=== PATIENT | female | born 1955 | race Caucasian/White ===

== ENCOUNTER 2017-05-03 10:47 | Inpatient (IN) | payer OTHER, SELFPAY ==
[2017-05-03] MEDS ORDERED: Morphine 4 MG/ML VIAL ONE (11:37)
[2017-05-03] MEDS ORDERED: Ondansetron HCl/PF 4 MG/2 ML Vial ONE (11:40)
[2017-05-03] MEDS ORDERED: Fentanyl 100 MCG/2 ML VIAL ONE ×2 (11:40→13:25)
[2017-05-03] MEDS ORDERED: Dextrose 50% Abboject 50 ML SYRINGE SLOW IVP PRN (14:06)
[2017-05-03] MEDS ORDERED: Dextrose 5% in Water 1,000 ML IV PRN (14:06)
[2017-05-03] MEDS ORDERED: Bisacodyl 10 MG SUPP PR PRN (14:11)
[2017-05-03] MEDS ORDERED: Rib Fracture Protocol PO SCH (14:15)
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
[2017-05-03 17:54] VITALS: BMI 31.3
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
[2017-05-03] MEDS ORDERED: Cyclobenzaprine 10 MG TAB PO PRN (18:15)
[2017-05-03] MEDS: traMADol HCl 50 MG TAB PO SCH (18:48)
[2017-05-03] MEDS: Acetaminophen 500 MG TAB PO SCH (18:49)
--- NOTE | 2017-05-03 21:15 | RAD ---
THREE VIEWS CERVICAL SPINE: Date: 05-03-17 Comparison: None. History: History of C5-6 fracture. FINDINGS: Open mouth odontoid views demonstrates a normal appearing dens and C1-2 articulation. Detailed assess ment of the cervical spine is limited secondary to collar placement. The lateral examination is limit ed by rotation. The fracture deformities per the provided history of not well assessed. Recommend CT examination. IMPRESSION: 1. Limited assessment of the cervical spine as detailed above. History reports C4 and C5 fractures, b ut no CT examination is available for comparison. 2. Recommend CT examination as clinically warranted. POS: [facility]
[2017-05-03] MEDS: Famotidine 20 MG TAB PO SCH (21:54)
[2017-05-03] MEDS: Gabapentin 300 MG CAP PO SCH (21:55)
[2017-05-03] MEDS: Famotidine 40 MG/4 ML VIAL SLOW IVP SCH (21:55)
[2017-05-03] MEDS: Docusate 100 MG CAP PO SCH (21:55)
[2017-05-03] MEDS: Ibuprofen 800 MG TAB PO SCH (22:04)
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
[2017-05-04] MEDS: traMADol HCl 50 MG TAB PO SCH ×5 (00:50→23:52)
[2017-05-04] MEDS: Acetaminophen 500 MG TAB PO SCH ×4 (00:51→19:44)
[2017-05-04] MEDS: Ondansetron HCl/PF 4 MG/2 ML Vial IVP PRN ×2 (02:41→08:58)
[2017-05-04 05:46] LABS: #Eosinphils 0.1 thou/uL (0.0-0.7); #Lymphocytes 0.8 thou/uL (1.20-3.40); #Monocytes 0.5 thou/uL (0.11-0.59); #Neutrophils 3.4 thou/uL (1.40-6.50); %Basophils 0.1 % (0.0-1.0); %Eosinophils 1.1 % (0.0-10.0); %Lymphocytes 16.7 % (21.0-51.0); %Monocytes 10.8 % (0.0-10.0); %Neutrophils 71.3 % (42.0-75.0); Hemoglobin 12.3 g/dL (12.0-16.0); Mean Corpuscular HGB CONC 32.9 g/dL (32.0-36.0); Mean Corpuscular Hemoglobin 30.9 pg (27.0-31.0); Mean Corpuscular Volume 93.8 fl (81.0-99.0); Mean Platelet Volume 6.6 fL (7.4-10.4); Platelet Count 162 thou/uL (130-400); RBC Distribution Width 11.3 % (11.5-14.5); Red Blood Cell (RBC) Count 3.98 mill/uL (4.20-5.40); White Blood Cell (WBC) Count 4.7 thou/uL (4.8-10.8)
[2017-05-04 05:55] LABS: Anion Gap 9 mmol/L (10-20); BUN (Urea Nitrogen) 15 mg/dL (9.8-20.1); Calc. Creatinine Clearance 119 mL/min (70-130); Calcium 8.8 mg/dL (7.8-10.44); Carbon Dioxide 28 mmol/L (22-29); Chloride 102 mmol/L (98-107); Estimated GFR-MDRD 82; Glucose 147 mg/dL (70-105); Potassium 4.3 mmol/L (3.5-5.1); Sodium 135 mmol/L (136-145)
[2017-05-04] MEDS: Ibuprofen 800 MG TAB PO SCH ×3 (06:41→21:53)
[2017-05-04] MEDS: Famotidine 20 MG TAB PO SCH ×2 (08:57→21:53)
[2017-05-04] MEDS ORDERED: Sodium Chloride 0.9% 1,000 ML IV SCH (11:00)
[2017-05-04] MEDS: Famotidine 40 MG/4 ML VIAL SLOW IVP SCH ×2 (11:31→21:54)
[2017-05-04] MEDS: Gabapentin 300 MG CAP PO SCH ×3 (11:31→21:54)
[2017-05-04] MEDS: Docusate 100 MG CAP PO SCH ×2 (11:31→21:54)
[2017-05-04] MEDS: Polyethylene Glycol 3350 17 GM Packet PO SCH (11:31)
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
[2017-05-04] MEDS: Scopolamine 1.5 mg/72 hour Patch TD SCH (19:43)
[2017-05-04] MEDS ORDERED: HYDROcodone/Acetaminophen 10/325 mg Tablet PO PRN (20:29)
[2017-05-04] MEDS: Acetaminophen 325 MG TAB PO SCH (21:53)
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
[2017-05-04] MEDS ORDERED: diphenhydrAMINE 25 MG CAP PO PRN (23:32)
[2017-05-05] MEDS: Acetaminophen 325 MG TAB PO SCH ×4 (03:06→21:52)
[2017-05-05] MEDS: Ibuprofen 800 MG TAB PO SCH ×3 (05:40→21:52)
[2017-05-05] MEDS: traMADol HCl 50 MG TAB PO SCH ×4 (05:41→23:20)
[2017-05-05] MEDS: Famotidine 20 MG TAB PO SCH ×2 (08:59→21:52)
[2017-05-05] MEDS: Famotidine 40 MG/4 ML VIAL SLOW IVP SCH ×2 (08:59→21:21)
[2017-05-05] MEDS: Docusate 100 MG CAP PO SCH ×2 (08:59→21:51)
[2017-05-05] MEDS: Gabapentin 300 MG CAP PO SCH ×3 (08:59→21:22)
[2017-05-05] MEDS: Polyethylene Glycol 3350 17 GM Packet PO SCH (08:59)
[2017-05-05] MEDS: diphenhydrAMINE 25 MG CAP PO PRN (11:41)
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
[2017-05-05] MEDS: Ondansetron HCl/PF 4 MG/2 ML Vial IVP PRN (14:40)
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
[2017-05-06] MEDS: Acetaminophen 325 MG TAB PO SCH ×4 (03:44→22:09)
[2017-05-06] MEDS: traMADol HCl 50 MG TAB PO SCH ×3 (06:26→17:47)
[2017-05-06] MEDS: Ibuprofen 800 MG TAB PO SCH ×3 (06:27→22:10)
[2017-05-06] MEDS: diphenhydrAMINE 25 MG CAP PO PRN ×2 (06:29→22:10)
[2017-05-06] MEDS: Docusate 100 MG CAP PO SCH ×2 (08:55→22:09)
[2017-05-06] MEDS: Famotidine 40 MG/4 ML VIAL SLOW IVP SCH (08:55)
[2017-05-06] MEDS: Famotidine 20 MG TAB PO SCH ×2 (08:55→22:10)
[2017-05-06] MEDS: Gabapentin 300 MG CAP PO SCH (08:55)
[2017-05-06] MEDS: Polyethylene Glycol 3350 17 GM Packet PO SCH (08:55)
[2017-05-06] MEDS: Enoxaparin Sodium 40 MG/0.4 ML SYRINGE SC SCH (08:56)
[2017-05-06] MEDS ORDERED: HYDROcodone/Acetaminophen 10/325 mg Tablet PO PRN (09:22)
[2017-05-06] MEDS ORDERED: HYDROcodone/Acetaminophen 10/325 mg Tablet PO SCH (09:30)
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
[2017-05-07] MEDS: traMADol HCl 50 MG TAB PO SCH ×4 (00:46→16:58)
[2017-05-07] MEDS: Gabapentin 300 MG CAP PO SCH ×3 (00:47→21:43)
[2017-05-07] MEDS: Famotidine 40 MG/4 ML VIAL SLOW IVP SCH ×2 (00:47→08:34)
[2017-05-07] MEDS: Acetaminophen 325 MG TAB PO SCH ×4 (03:53→21:41)
[2017-05-07 05:04] LABS: #Lymphocytes 1.2 thou/uL (1.20-3.40); #Monocytes 0.6 thou/uL (0.11-0.59); #Neutrophils 4.4 thou/uL (1.40-6.50); %Basophils 0.3 % (0.0-1.0); %Eosinophils 0.6 % (0.0-10.0); %Lymphocytes 18.9 % (21.0-51.0); %Monocytes 9.4 % (0.0-10.0); %Neutrophils 70.9 % (42.0-75.0); Hemoglobin 11.3 g/dL (12.0-16.0); Mean Corpuscular Hemoglobin 31.5 pg (27.0-31.0); Mean Corpuscular Volume 92.7 fl (81.0-99.0); Mean Platelet Volume 6.4 fL (7.4-10.4); Platelet Count 157 thou/uL (130-400); RBC Distribution Width 11.2 % (11.5-14.5); Red Blood Cell (RBC) Count 3.58 mill/uL (4.20-5.40); White Blood Cell (WBC) Count 6.2 thou/uL (4.8-10.8)
[2017-05-07 05:16] LABS: Anion Gap 9 mmol/L (10-20); BUN (Urea Nitrogen) 14 mg/dL (9.8-20.1); Calc. Creatinine Clearance 140 mL/min (70-130); Calcium 8.9 mg/dL (7.8-10.44); Carbon Dioxide 32 mmol/L (22-29); Chloride 101 mmol/L (98-107); Estimated GFR-MDRD Greater than 90; Glucose 106 mg/dL (70-105); Magnesium 1.6 mg/dL (1.6-2.6); Phosphorus 3.3 mg/dL (2.3-4.7); Potassium 4.4 mmol/L (3.5-5.1); Sodium 138 mmol/L (136-145)
[2017-05-07] MEDS: Ibuprofen 800 MG TAB PO SCH ×3 (06:13→21:42)
[2017-05-07] MEDS ORDERED: Magnesium 2 GM/NS 0.9% 100 ML 2 GM in Premix Bag 1 BAG IVPB SCH (08:00)
[2017-05-07] MEDS ORDERED: Magnesium 2 GM/NS 0.9% 50 ML 2 GM in Premix Bag 1 BAG IVPB SCH (08:00)
[2017-05-07] MEDS: Enoxaparin Sodium 40 MG/0.4 ML SYRINGE SC SCH (08:33)
[2017-05-07] MEDS: Polyethylene Glycol 3350 17 GM Packet PO SCH (08:33)
[2017-05-07] MEDS: Docusate 100 MG CAP PO SCH ×2 (08:34→21:41)
[2017-05-07] MEDS: Famotidine 20 MG TAB PO SCH ×2 (08:34→21:41)
[2017-05-07] MEDS ORDERED: Magnesium Citrate 300 ML BOT PO SCH (16:00)
[2017-05-07] MEDS: Scopolamine 1.5 mg/72 hour Patch TD SCH (16:57)
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
[2017-05-08] MEDS: traMADol HCl 50 MG TAB PO SCH ×5 (00:43→23:17)
[2017-05-08] MEDS: Acetaminophen 325 MG TAB PO SCH ×4 (04:12→20:25)
[2017-05-08] MEDS: Ibuprofen 800 MG TAB PO SCH ×3 (06:25→21:07)
[2017-05-08] MEDS: Ondansetron HCl/PF 4 MG/2 ML Vial IVP PRN (06:29)
[2017-05-08] MEDS ORDERED: Bisacodyl 10 MG SUPP PR SCH (09:00)
[2017-05-08] MEDS: diphenhydrAMINE 25 MG CAP PO PRN (09:14)
[2017-05-08] MEDS: Enoxaparin Sodium 40 MG/0.4 ML SYRINGE SC SCH (09:15)
[2017-05-08] MEDS: Polyethylene Glycol 3350 17 GM Packet PO SCH (09:15)
[2017-05-08] MEDS: Famotidine 20 MG TAB PO SCH ×2 (09:16→20:26)
[2017-05-08] MEDS: Docusate 100 MG CAP PO SCH ×2 (09:16→20:25)
[2017-05-08] MEDS: Bisacodyl 10 MG SUPP PR SCH ×2 (09:17→16:09)
[2017-05-08] MEDS: Gabapentin 300 MG CAP PO SCH ×2 (09:17→20:25)
[2017-05-08] MEDS ORDERED: Scopolamine 1.5 mg/72 hour Patch TD SCH (13:45)
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
[2017-05-08] MEDS ORDERED: Magnesium Citrate 300 ML BOT PO SCH (19:00)
[2017-05-09] MEDS: Acetaminophen 325 MG TAB PO SCH ×3 (03:21→15:36)
[2017-05-09] MEDS: traMADol HCl 50 MG TAB PO SCH ×3 (05:23→17:10)
[2017-05-09] MEDS: Ibuprofen 800 MG TAB PO SCH ×2 (05:24→15:37)
[2017-05-09] MEDS: Polyethylene Glycol 3350 17 GM Packet PO SCH (08:56)
[2017-05-09] MEDS: Docusate 100 MG CAP PO SCH (08:56)
[2017-05-09] MEDS: Gabapentin 300 MG CAP PO SCH (08:56)
[2017-05-09] MEDS: Famotidine 20 MG TAB PO SCH (08:56)
[2017-05-09] MEDS: Enoxaparin Sodium 40 MG/0.4 ML SYRINGE SC SCH (08:56)
[2017-05-09] MEDS: Bisacodyl 10 MG SUPP PR SCH (08:57)
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
[2017-05-09 15:04] VITALS: BP 122/79; TEMP 98.2
== END 2017-05-09 17:31 | disposition home or self-care (01) | DRG 964 ==
LOC: ERS 10:47 → SURG A 14:06
PROVIDERS: ADMIT Surgery; ATTEND Surgery
DX: S32.810A Multiple fractures of pelvis with stable disruption of pelvic ring, initial encounter for closed fracture (principal); S36.020A Minor contusion of spleen, initial encounter; S12.500A Unspecified displaced fracture of sixth cervical vertebra, initial encounter for closed fracture; S37.042A Minor laceration of left kidney, initial encounter; K59.00 Constipation, unspecified; V57.0XXA Driver of pick-up truck or van injured in collision with fixed or stationary object in nontraffic accident, initial encounter
CPT/HCPCS: 36415; 72040; 72190; 80048; 83735; 84100; 85025; 94640; 96374; 96375; 96376; G0390; G8978-GP-CL; G8979-GP-CJ; G8987-GO-CM; G8988-GO-CI; J1650; J2270; J2405; J3010; J7620

== ENCOUNTER 2017-06-24 11:57 | Outpatient (CLI) | payer MEDICAID | END 2017-06-24 11:58 | disposition home or self-care (01) | LOC: BICRAD 11:57 | PROVIDERS: ATTEND Neurological Surgery | DX: S12.9XXA Fracture of neck, unspecified, initial encounter (principal); M47.892 Other spondylosis, cervical region; M43.12 Spondylolisthesis, cervical region | CPT/HCPCS: 72040 ==

== ENCOUNTER 2017-07-14 14:04 | Outpatient (CLI) | payer MEDICAID ==
--- NOTE | 2017-07-15 08:50 | RAD ---
CERVICAL SPINE: 07/14/17 Three views. Lateral views were obtained in neutral, flexion and extension positions. INDICATION: Followup cervical spine fracture. Prior cervical spine from 06/24/17 and 05/03/17 are compared. Those exams provided history of prior C4 a nd C5 fractures; however, there are no CTs available. Cervical vertebrae maintain height. There is a slight anterolisthesis at C5-6 measuring approximately 3 mm. This is not well delineated on the plain films of 05/03/17 due to positioning and soft tissue a rtifact obscuring this region. This mild anterolisthesis does not appear to significantly change with flexion or extension. There is loss of disc space and degenerative changes at C6-C7. Anterior bridging osteophyte is noted at C6-C7. No fracture identified. IMPRESSION: Mild anterolisthesis at C5-C6. Degenerative changes at C5-C6 and C6-C7. POS: [facility]
== END 2017-07-14 14:05 | disposition home or self-care (01) ==
LOC: TBSIIMAG 14:04
PROVIDERS: ATTEND Neurological Surgery
DX: S12.9XXA Fracture of neck, unspecified, initial encounter (principal); M47.892 Other spondylosis, cervical region; M43.12 Spondylolisthesis, cervical region
CPT/HCPCS: 72040; 72100

== ENCOUNTER 2017-09-21 12:32 | Outpatient (CLI) | payer OTHER | END 2017-09-21 12:33 | disposition home or self-care (01) | LOC: BICCT 12:32 | PROVIDERS: ATTEND Urology | DX: N20.0 Calculus of kidney (principal); S32.511D Fracture of superior rim of right pubis, subsequent encounter for fracture with routine healing; S32.591D Other specified fracture of right pubis, subsequent encounter for fracture with routine healing | CPT/HCPCS: 74176 ==